=== PATIENT | female | born 1965 | race Caucasian/White ===

== ENCOUNTER 2024-08-02 18:53 | Emergency (ER) | payer BC ==
[~2024-08-02] VITALS: Ht 162.6 cm; Wt 72.6 kg
[2024-08-02 19:05] VITALS: PULSE 61; RESP 18; TEMP 97.7
[2024-08-02] MEDS: ACETAMINOPHEN 325 MG TAB PO ONE (20:09)
[2024-08-02] MEDS: TETANUS/DIPHTHERIA TOX ADULT 0.5 ML SYR IM ONE (20:09)
[2024-08-02 20:15] VITALS: BP 176/85; PULSE 61; RESP 18; TEMP 97.7; O2SAT 97
== END 2024-08-02 20:15 | disposition home or self-care (01) ==
LOC: FSED 18:55
DX: S01.81XA Laceration without foreign body of other part of head, initial encounter (principal); W01.0XXA Fall on same level from slipping, tripping and stumbling without subsequent striking against object, initial encounter; Y93.01 Activity, walking, marching and hiking; Y92.89 Other specified places as the place of occurrence of the external cause
CPT/HCPCS: 90471; 90714; 99282